=== PATIENT | male | born 1965 | race American Indian/Alaskan Native ===

== ENCOUNTER 2022-02-25 21:19 | Emergency (ER) | payer SELFPAY ==
--- NOTE | 2022-02-26 00:49 | Emergency Department Report ---
ED Fall HPI - General Chief Complaint: Fall Stated Complaint: FALL/NECK/BACK PAIN Time Seen by Provider: 02/25/22 23:34 Source: patient Mode of arrival: Ambulatory - History of Present Illness Initial Comments: 56 yo M who present with fall associated with right lateral neck. Pt rated the pain as 3-4/10 in severity. Pt going in and out of sleep during exam. No other modifying or associated factors reported. - Related Data Previous Rx's Medication Instructions Recorded Last Taken Type Cyclobenzaprine [Flexeril] 10 mg PO TID PRN 5 Days #15 tab NS 02/26/22 Unknown Rx Allergies Allergy/AdvReac Type Severity Reaction Status Date / Time No Known Allergies Allergy Unverified 02/25/22 22:17 ED Review of Systems ROS: Stated complaint: FALL/NECK/BACK PAIN Other details as noted in HPI Comment: All other systems reviewed and negative Musculoskeletal: myalgia, other (right neck pain and lower back pain ) ED Past Medical Hx - Medications Home Medications: Home Medications Medication Instructions Recorded Confirmed Last Taken Type Cyclobenzaprine [Flexeril] 10 mg PO TID PRN 5 Days #15 tab NS 02/26/22 Unknown Rx ED Physical Exam - General Limitations: No Limitations General appearance: alert, in no apparent distress - Head Head exam: Present: atraumatic, normal inspection - Eye Eye exam: Present: normal appearance Pupils: Present: normal accommodation - ENT ENT exam: Present: normal exam, normal orophraynx - Neck Neck exam: Present: tenderness (right side neck tenderness without erythema or warmth ) - Respiratory Respiratory exam: Present: normal lung sounds bilaterally. Absent: respiratory distress, accessory muscle use - Cardiovascular Cardiovascular Exam: Present: regular rate, normal rhythm, normal heart sounds - GI/Abdominal GI/Abdominal exam: Present: soft, normal bowel sounds. Absent: distended, tenderness - Extremities Exam Extremities exam: Present: normal inspection, normal capillary refill. Absent: tenderness - Back Exam Back exam: Absent: tenderness - Neurological Exam Neurological exam: Present: alert, oriented X3 - Psychiatric Psychiatric exam: Present: normal affect, normal mood - Skin Skin exam: Present: warm, intact ED Course Vital Signs 02/25/22 22:09 Temperature 98.3 F Pulse Rate 56 L Respiratory 19 Rate Blood Pressure 193/113 [Right] O2 Sat by Pulse 100 Oximetry ED Medical Decision Making - Radiology Data CT head, Cervical and Lumbar with no acute findings - Medical Decision Making here with a fall with right side neck tenderness-- will go ahead and order CT head/cervical and lumbar to rule out any fx or dislocation-- CT head, Cervical and Lumbar with no acute findings --pt reassured and d/c home on flexeril with close follow up with PCP -- Critical care attestation.: If time is entered above; I have spent that time in minutes in the direct care of this critically ill patient, excluding procedure time. ED Disposition Clinical Impression: Neck pain on right side Fall Qualifiers: Encounter type: initial encounter Qualified Code(s): W19.XXXA - Unspecified fall, initial encounter Disposition: HOME / SELF CARE / HOMELESS Is pt being admited?: No Does the pt Need Aspirin: No Condition: Stable Instructions: Neck Exercises, Radicular Pain Additional Instructions: Take your muscle relaxant as prescribed to continue to help your symptoms Call and schedule follow-up with your primary doctor in the next 3 to 5 days for progress Please do not hesitate to call or return to emergency room if your symptoms worsen Prescriptions: Cyclobenzaprine [Flexeril] 10 mg PO TID PRN 5 Days #15 tab NS PRN Reason: Muscle Spasm Time of Disposition: 03:44
--- NOTE | 2022-02-26 01:29 | Cat Scan Report ---
CT HEAD WITHOUT CONTRAST INDICATION / CLINICAL INFORMATION: fall. TECHNIQUE: CT head was performed without administration of intravenous contrast. All CT scans at this location are performed using CT dose reduction for ALARA by means of automated exposure control. COMPARISON: None available. FINDINGS: CEREBRAL HEMISPHERES: There is no evidence of large territorial infarction or significant abnormality of ramírez-white matter differentiation. Ventricles within normal limits. No midline shift. Basal ciste rns patent. HEMORRHAGE: None. CEREBELLUM / BRAINSTEM: No significant abnormality. ORBITS: No significant abnormality. SOFT TISSUES: No significant abnormality. SKULL: No significant abnormality. PARANASAL SINUSES / MASTOID AIR CELLS: Normal as visualized. ADDITIONAL FINDINGS: None. IMPRESSION: 1. No acute intracranial abnormality. Signer Name: Chucho Tena II, MD Signed: 02/26/2022 1:24 AM Workstation Name: [id number]
--- NOTE | 2022-02-26 01:32 | Cat Scan Report ---
CT CERVICAL SPINE WITHOUT CONTRAST INDICATION / CLINICAL INFORMATION: fall and pain to the right side of neck. TECHNIQUE: Axial CT images were obtained through the cervical spine. Sagittal and coronal reformatted images were produced. All CT scans at this location are performed using CT dose reduction for ALARA by means of automated exposure control. COMPARISON: None available. FINDINGS: MANDIBLE: No significant abnormality of the visualized mandible or TMJs. SKULL BASE: No significant abnormality of the skull base. CRANIOCERVICAL JUNCTION: No significant abnormality of the craniocervical junction. CERVICAL SPINE: Alignment of the cervical spine appears within normal limits with exception of mild l evoscoliotic deformity that may reflect positioning. Anterior osteophyte formation at endplates of C3 -4 C4-5 and C6-7 are present with posterior endplate osteophyte formation most noticeably involving C 5-6. Fusion of left facet at C2-3. SOFT TISSUES: No significant abnormality of soft tissues or musculature. THYROID: No significant abnormality. UPPER CHEST: No significant abnormality of the visualized chest. ADDITIONAL FINDINGS: None. IMPRESSION: 1. No evidence of acute osseous injury. Signer Name: Chucho Tena II, MD Signed: 02/26/2022 1:27 AM Workstation Name: [id number]
--- NOTE | 2022-02-26 01:39 | Cat Scan Report ---
CT LUMBAR SPINE WITHOUT CONTRAST INDICATION / CLINICAL INFORMATION: fall and pain. TECHNIQUE: Axial CT images were obtained through the lumbar spine. Sagittal and coronal reformatted i mages were produced. All CT scans at this location are performed using CT dose reduction for ALARA by means of automated exposure control. COMPARISON: None available. FINDINGS: ALIGNMENT: No significant abnormality of alignment. VERTEBRAL BODIES: No significant abnormality demonstrated involving the lumbar vertebral bodies. DISC SPACES: Disc spaces are fairly uniform throughout the lumbar spine. POSTERIOR ELEMENTS AND CENTRAL CANAL: Mild to moderate facet arthropathy demonstrated bilaterally at L4-5. Mild central stenosis at this level results from broad-based posterior disc bulge, mild bilater al hypertrophy of the ligamentum flavum. SIGNIFICANT LEVEL BY LEVEL FINDINGS: No significant abnormality. INTRA THORACIC / INTRA-ABDOMINAL: Mild diffuse intimal calcification of the iliofemoral vessels is de monstrated. The bilateral common iliac arteries are minimally enlarged right measuring 1.5 cm and lef t measuring 1.4 cm. SOFT TISSUES AND MUSCULATURE: No significant abnormality. IMPRESSION: 1. No acute traumatic injury of the lumbar spine. Signer Name: Chucho Tena II, MD Signed: 02/26/2022 1:34 AM Workstation Name: [id number]
[2022-02-26 03:57] VITALS: BP 163/99
== END 2022-02-26 04:09 | disposition home or self-care (01) ==
LOC: ED 21:19
DX: M54.2 Cervicalgia (principal); W19.XXXA Unspecified fall, initial encounter; Y93.89 Activity, other specified; Y92.89 Other specified places as the place of occurrence of the external cause; Y99.8 Other external cause status
CPT/HCPCS: 70450; 72125; 72131; 99283